=== PATIENT | female | born 2000 | race Caucasian/White ===

== ENCOUNTER 2022-08-07 09:00 | Outpatient (RCR) | payer BC, SELFPAY | END 2022-11-13 09:59 | disposition home or self-care (01) | PROVIDERS: PCP Family Medicine; Visit Provider Family Medicine | DX: N94.2 Vaginismus (principal); Z51.89 Encounter for other specified aftercare | CPT/HCPCS: 97110; 97112; 97140; 97162; 97535 ==

== ENCOUNTER 2023-02-03 15:00 | Outpatient (RCR) | payer BC, SELFPAY | END 2023-05-03 15:10 | disposition home or self-care (01) | PROVIDERS: PCP Family Medicine; Visit Provider Pediatrics | DX: M25.50 Pain in unspecified joint (principal); Z51.89 Encounter for other specified aftercare | CPT/HCPCS: 97110; 97140; 97162 ==

== ENCOUNTER 2023-05-24 10:00 | Outpatient (RCR) | payer BC, OTHER, SELFPAY | END 2023-09-21 23:59 | disposition home or self-care (01) | PROVIDERS: PCP Family Medicine; Visit Provider Family Medicine | DX: M25.50 Pain in unspecified joint (principal); Z51.89 Encounter for other specified aftercare | CPT/HCPCS: 97110; 97140; 97162 ==